=== PATIENT | female | born 1985 | race African-American/Black ===

== ENCOUNTER 2020-02-18 19:02 | Day surgery (SDC) | payer OTHER ==
[2020-02-18] MEDS ORDERED: KETOROLAC TROMETHAMINE 15 MG/ML VIAL IVPUSH ONE (20:19)
[2020-02-18] MEDS ORDERED: SODIUM CHLORIDE 1,000 ML IV STA (20:20)
[2020-02-18] MEDS ORDERED: KETOROLAC TROMETHAMINE 15 MG/ML VIAL ONE (20:37)
--- NOTE | 2020-02-18 20:45 | PDOC ---
Documentation entered by Dane Barry SCRIBE, acting as scribe for Vijay Rodriguez MD. Vijay Rodriguez MD: This documentation has been prepared by the Asha marin Xhesika, SCRIBE, under my direction and personally reviewed by me in its entirety. I confirm that the documentation accurately reflects all work, treatment, procedures, and medical decision making performed by me. History of Present Illness - General Chief Complaint: Pain Stated Complaint: R/LOWER ABD/BACK/PAIN Time Seen by Provider: 02/18/20 20:10 History Source: Patient Exam Limitations: No Limitations - History of Present Illness Initial Comments: 02/18/20 20:18 The patient is a 34 year old female with a significant PMH of DM (on metformin) and PCOS who presents to the emergency department for RLQ abdominal pain. Pt states she was at work when she endorsed sudden onset RLQ pain, sharp/pressure in nature, radiating to her back, associated with nausea. Pt states her pain was initially 8/10, took some tylenol and it now a 4/10. Pt states her LMP was 12/27/19. The patient denies chest pain, shortness of breath, headache and dizziness. Denies fever, chills, cough, vomiting, diarrhea and constipation. Denies dysuria, frequency, urgency and hematuria. Allergies: NKDA PCP:Dr. Sheppard Past History - Medical History Allergies/Adverse Reactions: Allergies Allergy/AdvReac Type Severity Reaction Status Date / Time No Known Allergies Allergy Verified 02/18/20 19:32 Home Medications: Ambulatory Orders Metformin HCl [Glucophage] 500 mg PO BID 02/20/20 COPD: No CHF: No Diabetes: Yes (NIDDM) - Reproductive History Is Patient Now?: No (maybe?) - Psycho-Social/Smoking History Smoking History: Never smoked - Substance Abuse Hx (Audit-C & DAST Scrn) How often the patient has a drink containing alcohol: Never Score: In Men: 4 or > Positive; In Women: 3 or > Positive: 0 Screen Result (Pos requires Nsg. Audit-10AR): Negative In the last yr the pt used illegal drug/Rx for NonMed reason: No Score: Yes response is considered Positive: 0 Screen Result (Positive result requires Nsg. DAST-10): Negative Review of Systems - Review of Systems Able to Perform ROS?: Yes Comments:: 02/18/20 20:22 CONSTITUTIONAL: No fever, no chills, no fatigue EYES: No visual changes ENT: No ear pain, no sore throat CARDIOVASCULAR: No chest pain, no palpitations RESPIRATORY: No cough, no SOB GI: +RLQ abdominal pain radiating to back. +nausea. no vomiting, no constipation, no diarrhea GENITOURINARY: No dysuria, no frequency, no hematuria MUSKULOSKELETAL: No backpain, no joint pain, no myalgias SKIN: No rash NEURO: No headache *Physical Exam - Vital Signs Last Vital Signs Temp Pulse Resp BP Pulse Ox 97.1 F L 75 20 135/85 100 02/18/20 19:33 02/18/20 19:33 02/18/20 19:33 02/18/20 19:33 02/18/20 19:33 - Physical Exam 02/18/20 20:26 CONSTITUTIONAL: Well-appearing; well-nourished; in no apparent distress HEAD: Normocephalic; atraumatic EYES: PERRL; EOM intact ENMT: External appears normal; normal oropharynx NECK: Supple; non-tender; no cervical lymphadenopathy CARD: Normal S1, S2; no murmurs, rubs, or gallops RESP: Normal chest excursion with respiration; breath sounds clear and equal bilaterally; no wheezes, rhonchi, or rales ABD: +RLQ tenderness to palpation. Soft, non-distended; no palpable organomegaly, no palpable hernias EXT: Normal ROM in all four extremities; non-tender to palpation; distal pulses intact SKIN: Warm, dry, no rash NEURO: No focal neurological deficiencies. ED Treatment Course - LABORATORY CBC & Chemistry Diagram: 02/20/20 06:55 02/19/20 07:05 Medical Decision Making - Medical Decision Making 02/18/20 20:43 Patient is a morbidly obese 34-year-old female with history of PCOS, diabetes on metformin who presents with atraumatic sharp right lower quadrant pain for the past several hours associated with nausea, colicky in nature, waxing and waning in severity. In the ER, patient is awake and alert, nontoxic-appearing, afebrile, with focal right lower quadrant tenderness to palpation without guarding or rebound. No CVA tenderness is appreciated. Differential diagnosis includes acute appendicitis versus ovarian torsion versus ovarian cyst rupture. Versus ectopic . Will obtain CBC/CMP/UA/UCG. Will obtain transvaginal ultrasound to rule out torsion. Will consider CT of abdomen pelvis. Will reassess. Discharge - Discharge Information Problems reviewed: Yes Clinical Impression/Diagnosis: Abdominal pain Qualifiers: Abdominal location: right lower quadrant Qualified Code(s): R10.31 - Right lower quadrant pain Acute appendicitis Qualifiers: Acute appendicitis type: other Qualified Code(s): K35.890 - Other acute appendicitis without perforation or gangrene; K35.89 - Other acute appendicitis Condition: Good Disposition: HOME - Follow up/Referral - Patient Discharge Instructions - Post Discharge Activity
[2020-02-18 21:00] LABS: BASO % 0.8 % (0-2.0); EOS % 1.1 % (0-4.5); HEMOGLOBIN 13.1 GM/dL (10.7-15.3); MCH 27.6 pg (25.7-33.7); MCHC 33.6 g/dl (32.0-36.0); MEAN CELL VOLUME 82.1 fl (80-96); MEAN PLT VOLUME 8.8 fl (7.5-11.1); NEUT % 61.1 % (42.8-82.8); PLATELET COUNT 303 K/MM3 (134-434); RBC 4.74 M/mm3 (3.60-5.2); RDW 14.1 % (11.6-15.6); WHITE BLOOD COUNT 12.4 K/mm3 (4.0-10.0)
[2020-02-18 21:46] LABS: ALBUMIN 3.8 g/dl (3.4-5.0); BILIRUBIN,TOTAL 0.3 mg/dL (0.2-1); BLOOD UREA NITROGEN 10.8 mg/dL (7-18); CALCIUM 9.3 mg/dL (8.5-10.1); CREATININE 0.9 mg/dL (0.55-1.3); TOT PROT 7.5 g/dl (6.4-8.2)
[2020-02-18 21:55] LABS: URINE APPEARANCE CLEAR; URINE BILIRUBIN NEGATIVE (NEGATIVE); URINE COLOR YELLOW; URINE GLUCOSE (UA) NEGATIVE (NEGATIVE); URINE KETONE NEGATIVE (NEGATIVE); URINE LEUK ESTERASE NEGATIVE (NEGATIVE); URINE NITRITE NEGATIVE (NEGATIVE); URINE PROTEIN NEGATIVE (NEGATIVE)
[2020-02-18 21:56] LABS: HCG,QUALITATIVE URINE Negative
[2020-02-19] MEDS ORDERED: PIPERACILLIN/TAZOB 4.5 GM 4.5 GM in DEXTROSE 5%-WATER 100 ML IVPB ONE (00:45)
[2020-02-19] MEDS ORDERED: PIPERACILLIN/TAZOB 4.5 GM 4.5 GM/100 ML BAG IVPB ONE (00:57)
[2020-02-19] MEDS ORDERED: DEXTROSE 5%-LACTATED RINGERS 1,000 ML IV SCH (01:00)
[2020-02-19] MEDS ORDERED: morphine CARPU-JECT 4 MG/1 ML DISP.SYRIN IVPUSH ONE (01:09)
[2020-02-19] MEDS ORDERED: morphine SULFATE 4 MG/ML VIAL ONE (01:10)
--- NOTE | 2020-02-19 01:11 | PDOC ---
*Physical Exam - Vital Signs Last Vital Signs Temp Pulse Resp BP Pulse Ox 97.1 F L 75 20 135/85 100 02/18/20 19:33 02/18/20 19:33 02/18/20 19:33 02/18/20 19:33 02/18/20 19:33 ED Treatment Course - LABORATORY CBC & Chemistry Diagram: 02/18/20 20:10 02/18/20 20:10 - ADDITIONAL ORDERS Additional order review: Laboratory Results 02/18/20 02/18/20 21:45 20:10 Sodium 141 Potassium 4.0 Chloride 106 Carbon Dioxide 27 Anion Gap 9 BUN 10.8 Creatinine 0.9 Est GFR (CKD-EPI)AfAm 96.01 Est GFR (CKD-EPI)NonAf 82.84 Random Glucose 154 H Calcium 9.3 Total Bilirubin 0.3 AST 22 ALT 39 Alkaline Phosphatase 71 Total Protein 7.5 Albumin 3.8 Lipase 97 Urine Color Yellow Urine Appearance Clear Urine pH 5.0 Ur Specific [place] 1.017 Urine Protein Negative Urine Glucose (UA) Negative Urine Ketones Negative Urine Blood Negative Urine Nitrite Negative Urine Bilirubin Negative Urine Urobilinogen 1.0 Ur Leukocyte Esterase Negative Urine HCG, Qual Negative 02/18/20 20:10 RBC 4.74 MCV 82.1 MCHC 33.6 RDW 14.1 MPV 8.8 Neutrophils % 61.1 Lymphocytes % 31.0 Monocytes % 6.0 Eosinophils % 1.1 Basophils % 0.8 - Medications Given in the ED: ED Medications Discontinued Medications Generic Name Dose Route Start Last Admin Trade Name Freq PRN Reason Stop Dose Admin Sodium Chloride 1,000 mls @ 1,000 mls/hr 02/18/20 20:20 02/18/20 20:53 Normal Saline - IV 02/18/20 21:19 1,000 mls/hr ASDIR STA Administration Ketorolac Tromethamine 15 mg 02/18/20 20:19 02/18/20 20:53 Toradol Injection - IVPUSH 02/18/20 20:20 15 mg ONCE ONE Administration Medical Decision Making - Medical Decision Making 02/19/20 01:10 Sign out received from Dr. Rodriguez at 12am 34 F with RLQ pain. CT shows acute appy without abscess or free air Dr. Rabago made aware of pt Will admit to hospitalist Discharge - Discharge Information Problems reviewed: Yes Clinical Impression/Diagnosis: Abdominal pain, Acute appendicitis - Admission Yes - Follow up/Referral Referrals: ON STAFF,NOT [Primary Care Provider] - - Patient Discharge Instructions - Post Discharge Activity
--- NOTE | 2020-02-19 01:47 | PN ---
Teaching Attending Note Name of Resident: Simon Rider ATTENDING PHYSICIAN STATEMENT I saw and evaluated the patient. I reviewed the resident's note and discussed the case with the resident. I agree with the resident's findings and plan as documented. SUBJECTIVE: Patient is a 34 year old woman with a PMH of NIDDM (on Metformin) and PCOS who presents to the ER for RLQ abdominal pain. Says she was at work when she developed sudden onset of RLQ pain, sharp/pressure in nature, radiating to her back, associated with nausea. Her pain was initially 8/10 - she took some Tylenol and it now a 4/10. LMP was 12/27/19 - say her periods are irregular due to the PCOS. Patient denies chest pain, shortness of breath, headache, palpitations, dizziness, fever, chills, vomiting, diarrhea, constipation, dysuria, frequency, urgency, melena, hematochezia or hematuria. Denies alcohol, tobacco or illicit drug use. No sick contacts or recent travels. Family history of HTN and CVA in mother; DM in father. OBJECTIVE: Alert Vital Signs Period Temp Pulse Resp BP Sys/Garcia Pulse Ox Last 24 Hr 97.1 F 75 20 135/85 100 HEENT: No Jaundice, eye redness or discharge, PERRLA, EOMI. Normocephalic, atraumatic. External ears are normal and hearing is grossly intact. No nasal discharge. Neck: Supple, nontender. No palpable adenopathy or thyromegaly. No JVD Chest: Good effort. Clear to auscultation and percussion. Heart: Regular. No S3, rub or murmur Abdomen: Not distended, soft, RLQ tenderness and no HSM. No rebound or guarding. Normal bowel sounds. Ext: Peripheral pulses intact. No leg edema. Skin: Warm and dry. No petechiae, rash or ecchymosis. Neuro: Alert. Oriented x3. CN 2-12 grossly intact. Sensation grossly intact in all four extremities and DTR are symmetric. Psych: Appropriate mood and affect. Good insight. Current Medications Generic Name Dose Route Start Last Admin Trade Name Freq PRN Reason Stop Dose Admin Dextrose/Lactated Ringer's 1,000 mls @ 125 mls/hr 02/19/20 01:00 02/19/20 01:08 D5-Lr - IV 125 mls/hr ASDIR ROCHELLE Administration Abnormal Lab Results 02/18/20 02/18/20 20:10 20:10 WBC 12.4 H Random Glucose 154 H Current Medications Generic Name Dose Route Start Last Admin Trade Name [place] PRN Reason Stop Dose Admin Acetaminophen 1,000 mg 02/19/20 02:19 Ofirmev Injection - IVPB 02/20/20 02:19 Q6H PRN PAIN LEVEL 1-5 Dextrose/Lactated Ringer's 1,000 mls @ 125 mls/hr 02/19/20 01:00 02/19/20 01:08 D5-Lr - IV 125 mls/hr ASDIR ROCHELLE Administration Sodium Chloride 1,000 mls @ 75 mls/hr 02/19/20 02:30 Normal Saline - IV ASDIR ROCHELLE Piperacillin Sod/Tazobactam 50 mls @ 100 mls/hr 02/19/20 08:00 Sod 3.375 gm/ Dextrose IVPB Q8H-IV ROCHELLE Protocol Piperacillin Sod/Tazobactam 50 mls @ 100 mls/hr 02/19/20 08:00 Sod 3.375 gm/ Dextrose IVPB 02/20/20 02:29 Q8H-IV ROCHELLE Protocol Insulin Aspart 1 vial 02/19/20 02:30 Novolog Vial Sliding Scale - SQ Q6H ROCHELLE Protocol Morphine Sulfate 2 mg 02/19/20 02:19 Morphine Sulfate IVPUSH Q4H PRN PAIN LEVEL 6-10 ASSESSMENT AND PLAN: 1. Appendicitis - CT abdomen/pelvis shows acute appendicitis without abscess or free air. Official report of transvaginal ultrasound is pending. Got IV Zosyn in the ER. Will continue same until he goes for surgery in the morning, get PT/INR, serum test, keep him NPO, give IV NS and use IV Morphine for pain control. ER staff consulted Surgery. EKG pending. Viral testing for COVID-19 ordered and patient placed on airborne, droplet and contact isolation. Will continue comprehensive care for all of patients comorbid conditions. 2. DM For now, we will hold the home diabetes drugs and implement sliding scale insulin regimen. Provide comprehensive diabetes care with patient teaching and counseling about the importance of adherence to prescribed diabetes regimen, euglycemia, eye care and foot care. 3. Hypertension Will restart suitable outpatient antihypertensive drugs when clinically appropriate. Subsequently, will revise regimen to ensure [id number] excellent BP control. Patient counseled on the injurious effects of uncontrolled hypertension. Nonpharmacologic measures to control hypertension like weight loss, salt restriction and exercise stressed. Importance of adherence to treatment regimen and attainment of normotension emphasized. 4. Morbid obesity Counseled on the risks associated with obesity. Will provide patient all the necessary assistance, counseling and positive reinforcement to facilitate weight loss. Consult filer repairer. 5. DVT prophylaxis - SCD. 6. Advance directives - Full code
[2020-02-19] MEDS ORDERED: ACETAMINOPHEN 1000 MG/100 ML VIAL (NON FORMULARY) IVPB PRN ×2 (02:19→15:06)
[2020-02-19] MEDS ORDERED: MORPHINE SULFATE 2 MG/ML VIAL IVPUSH PRN (02:19)
--- NOTE | 2020-02-19 02:26 | HP ---
CHIEF COMPLAINT: abdominal pain PCP: HISTORY OF PRESENT ILLNESS: Patient is a 34 year old female with history of diabetes mellitus (non insulin dependent), PCOS, presents with complaint of abdominal pain. Endorses the pain has been ongoing intermittentl for the past month, however suddenly worsened today while at work. 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 Endorses nausea, denies vomiting. Admits that the pain radiates to her back. She denies subjective fevers, chills, shortness of breath or chest pain. female. LMP 12/27/2019 (states her menstrual periods are irregular due to PCOS) ER course was notable for: (1) CT abdomen/ pelvis (2) (3) Recent Travel: denies PAST MEDICAL HISTORY: diabetes mellitus (non insulin dependent), PCOS PAST SURGICAL HISTORY: denies FAMILY HISTORY: Mother- hypertension, CVA. Father- diabetes mellitus Social History: Lives with . 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 Independent in activities of daily living. Smoking: denies smoking cigarettes Alcohol: denies drinking alcohol Drugs: denies illicit drug use Allergies No Known Allergies Allergy (Verified 02/18/20 19:32) HOME MEDICATIONS: REVIEW OF SYSTEMS CONSTITUTIONAL: Absent: fever, chills, diaphoresis, generalized weakness, malaise, loss of appetite, weight change HEENT: Absent: rhinorrhea, nasal congestion, throat pain, throat swelling, difficulty swallowing, mouth swelling, ear pain, eye pain, visual changes CARDIOVASCULAR: Absent: chest pain, syncope, palpitations, irregular heart rate, lightheadedness, peripheral edema RESPIRATORY: Absent: cough, shortness of breath, dyspnea with exertion, orthopnea, wheezing, stridor, hemoptysis GASTROINTESTINAL: Admits: abdominal pain, nausea. Absent: abdominal distension, vomiting, diarrhea, constipation, melena, hematochezia GENITOURINARY: Absent: dysuria, frequency, urgency, hesitancy, hematuria, flank pain, genital pain MUSCULOSKELETAL: Absent: myalgia, arthralgia, joint swelling, back pain, neck pain SKIN: Absent: rash, itching, pallor HEMATOLOGIC/IMMUNOLOGIC: Absent: easy bleeding, easy bruising, lymphadenopathy, frequent infections ENDOCRINE: Absent: unexplained weight gain, unexplained weight loss, heat intolerance, cold intolerance NEUROLOGIC: Absent: headache, focal weakness or paresthesias, dizziness, unsteady gait, seizure, mental status changes, bladder or bowel incontinence PSYCHIATRIC: Absent: anxiety, depression, suicidal or homicidal ideation, hallucinations. PHYSICAL EXAMINATION Vital Signs - 24 hr 02/18/20 19:33 Temperature 97.1 F L Pulse Rate 75 Respiratory 20 Rate Blood Pressure 135/85 O2 Sat by Pulse 100 Oximetry (%) GENERAL: The patient is awake, alert, and fully oriented, in no acute distress. HEAD: Normocephalic, atraumatic. EYES: PERRL, extraocular movements intact, sclera anicteric, conjunctiva clear. ENT: Oropharynx clear, without erythema or exudates. Moist mucous membranes. NECK: Trachea midline, full range of motion. Supple without lymphadenopathy. LUNGS: Breath sounds equal, clear to auscultation bilaterally. No wheezes, no crackles. No accessory muscle use. HEART: Regular rate and rhythm. S1, S2 without murmur, rub or gallop. ABDOMEN: Obese abdomen. Soft, distended. Tender to palpation worst over right lower quadrant. No rebound tenderness, no guarding. Normoactive bowel sounds x4 quadrants. EXTREMITIES: 2+ radial, dorsalis pedis pulses bilaterally. Warm, well-perfused. No lower extremity edema bilaterally. NEUROLOGICAL: Cranial nerves II through XII grossly intact. Normal speech. No gross focal deficits. PSYCH: Normal mood, normal affect upon my encounter. SKIN: Warm, dry. Laboratory Results - last 24 hr 02/18/20 02/18/20 02/18/20 20:10 20:10 21:45 WBC 12.4 H RBC 4.74 Hgb 13.1 Hct 39.0 MCV 82.1 MCH 27.6 MCHC 33.6 RDW 14.1 Plt Count 303 MPV 8.8 Absolute Neuts (auto) 7.6 Neutrophils % 61.1 Lymphocytes % 31.0 Monocytes % 6.0 Eosinophils % 1.1 Basophils % 0.8 Nucleated RBC % 0 Sodium 141 Potassium 4.0 Chloride 106 Carbon Dioxide 27 Anion Gap 9 BUN 10.8 Creatinine 0.9 Est GFR (CKD-EPI)AfAm 96.01 Est GFR (CKD-EPI)NonAf 82.84 Random Glucose 154 H Calcium 9.3 Total Bilirubin 0.3 AST 22 ALT 39 Alkaline Phosphatase 71 Total Protein 7.5 Albumin 3.8 Lipase 97 Urine Color Yellow Urine Appearance Clear Urine pH 5.0 Ur Specific [place] 1.017 Urine Protein Negative Urine Glucose (UA) Negative Urine Ketones Negative Urine Blood Negative Urine Nitrite Negative Urine Bilirubin Negative Urine Urobilinogen 1.0 Ur Leukocyte Esterase Negative Urine HCG, Qual Negative ASSESSMENT/PLAN: Patient is a 34 year old female with history of diabetes mellitus (non insulin dependent), PCOS, presents with complaint of abdominal pain. Acute appendicitis -CT abdomen, pelvis reveals appendix borderline dilatd to 7mm, mildly inflamed- consistent with acute appendicitis. Negative abscess, or free air. -Patient was treated with IV Zosn in ED. Will continue Zosyn 3.37grams IV Q8 hours. -NPO pending surgical evaluation -IV normal saline at 75mL/ hour -Pain control with Ofirmev for pain 1-5 -Morphine 2mg IV Q4 hours for breakthrough pain -Obtain type and cross, PT/INR, PTT -Follow blood cultures -General surgery consult (Dr. Rabago) History of diabetes mellitus -HgbA1c -Holding home metformin -Insulin slidng scale Q6 hours while NPO -[place]ing[place]ick blood glucose monitoring Q6 hours while NPO History of PCOS -LMP over one month ago. Serum test negative -Transvaginal US reveals nabothian cysts. Negative torsion -Patient will require OBGYn follow up upon discharge Morbid obesity -Counselled regarding healthy diet, lifestyle -core cutter and reamer consult FEN -IV normal saline at 75mL/ hour -Follow BMP -NPO pending surgical evaluation Prophylaxis -SCDs bilateral lower extremities. Holding chemical AC in anticipation of surgical evaluation Disposition -Admit to medical- surgical floor. Family Medical History Family History: As Documented Visit type - Emergency Visit Emergency Visit: Yes ED Registration Date: 02/19/20 Care time: The patient presented to the Emergency Department on the above date and was hospitalized for further evaluation of their emergent condition. - New Patient This patient is new to me today: Yes Date on this admission: 02/19/20 - Critical Care Critical Care patient: No ATTENDING PHYSICIAN STATEMENT I saw and evaluated the patient. I reviewed the resident's note and discussed the case with the resident. I agree with the resident's findings and plan as documented. SUBJECTIVE: OBJECTIVE: ASSESSMENT AND PLAN:
[2020-02-19] MEDS ORDERED: SODIUM CHLORIDE 1,000 ML IV SCH ×2 (02:30→08:58)
[2020-02-19 03:28] VITALS: BMI 46.6
[2020-02-19] MEDS: INSULIN SLIDING SCALE (NOVOLOG) 1 VIAL SQ SCH ×3 (03:30→14:23)
[2020-02-19 07:45] LABS: HEMATOCRIT 38.6 % (32.4-45.2); HEMOGLOBIN 13.1 GM/dL (10.7-15.3); MCH 28.2 pg (25.7-33.7); MEAN CELL VOLUME 83.1 fl (80-96); MEAN PLT VOLUME 8.7 fl (7.5-11.1); PLATELET COUNT 280 K/MM3 (134-434); RBC 4.64 M/mm3 (3.60-5.2); RDW 14.4 % (11.6-15.6); WHITE BLOOD COUNT 9.6 K/mm3 (4.0-10.0)
[2020-02-19 07:59] LABS: INR 1.02 (0.83-1.09)
[2020-02-19] MEDS ORDERED: PIPERACILLIN/TAZOB 3.375 GM 3.375 GM in DEXTROSE 5%-WATER - 50 ML IVPB SCH (08:00)
[2020-02-19 08:03] LABS: ALBUMIN 3.6 g/dl (3.4-5.0); CREATININE 0.8 mg/dL (0.55-1.3); MAGNESIUM 1.9 mg/dL (1.8-2.4); PHOSPHOROUS 3.5 mg/dL (2.5-4.9); POTASSIUM 3.8 mmol/L (3.5-5.1)
[2020-02-19 08:21] LABS: BILIRUBIN,TOTAL 0.5 mg/dL (0.2-1)
[2020-02-19] MEDS ORDERED: PIPERACILLIN/TAZOBACTAM 3.375 GM VIAL IVPB ONE (09:29)
[2020-02-19] MEDS ORDERED: DEXTROSE 5%-WATER - 50 ML IVPB ONE (09:29)
[2020-02-19] MEDS ORDERED: ONDANSETRON 4 MG/2 ML VIAL IVPUSH PRN ×2 (10:56→15:06)
[2020-02-19] MEDS ORDERED: LACTATED RINGERS SOLUTION 1,000 ML IV SCH ×2 (11:00→15:06)
--- NOTE | 2020-02-19 11:00 | CONSULT ---
- Consultation REQUESTING PROVIDER: CONSULT REQUEST: We have been asked to surgically evaluate this patient for appendicitis. PCP:Roni Smith MD HISTORY OF PRESENT ILLNESS:YINKA who is a 34 year old female who presented with complaints of abdominal pain. She states the pain has been ongoing intermittently ?? for the past month ??, however suddenly worsened 02/18/2020 while at work after having just finished eating lunch ([employer]) when she suddenly experienced sharp right lower quadrant abdominal pain which initially was generalized. She had nausea, denies vomiting. 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 PMHx: NIDDM/PCOS PSHx: none Allergies Allergy/AdvReac Type Severity Reaction Status Date / Time No Known Allergies Allergy Verified 02/18/20 19:32 REVIEW OF SYSTEMS: CONSTITUTIONAL: Absent: fever, chills, diaphoresis, generalized weakness, malaise, loss of appetite, weight change CARDIOVASCULAR: Absent: chest pain, syncope, palpitations, irregular heart rate, lightheadedness, peripheral edema RESPIRATORY: Absent: cough, shortness of breath, dyspnea with exertion, wheezing, stridor, hemoptysis GASTROINTESTINAL: Absent: abdominal pain, abdominal distension, nausea, vomiting, diarrhea, constipation, melena, hematochezia GENITOURINARY: Absent: dysuria, frequency, urgency, hesitancy, hematuria, flank pain, genital pain MUSCULOSKELETAL: Absent: myalgia, arthralgia, joint swelling, back pain, neck pain SKIN: Absent: rash, itching, pallor HEMATOLOGIC/IMMUNOLOGIC: Absent: easy bleeding, easy bruising, lymphadenopathy NEUROLOGIC: Absent: headache, focal weakness, paresthesias, dizziness, unsteady gait, seizure, mental status changes, bladder or bowel incontinence PSYCHIATRIC: Absent: anxiety, depression, suicidal or homicidal ideation, hallucinations. PHYSICAL EXAM: GENERAL: Awake, alert, and fully oriented, in no acute distress. HEAD: Normal with no signs of trauma. EYES: sclera anicteric, conjunctiva clear. NECK: Normal ROM, supple without lymphadenopathy, JVD, or masses. ABDOMEN: Soft, point tender over McBurneys point, not distended, normoactive bowel sounds, guarding is present and localized RLQ rebound, no masses. No organomegaly. No hernias; Rovsings; psoas and obturator signs are present. MUSCULOSKELETAL: Normal ROM at all joints. No bony deformities or tenderness. No CVA tenderness. UPPER EXTREMITIES: 2+ pulses, warm, well-perfused. No cyanosis. Cap refill <2 seconds. No peripheral edema. LOWER EXTREMITIES: 2+ pulses, warm, well-perfused. No calf tenderness. No peripheral edema. NEUROLOGICAL: Normal speech, gait not observed. PSYCH: Cooperative. Good eye contact. Appropriate mood and affect. SKIN: Warm, dry, normal turgor, no rashes or lesions noted. Vital Signs Temperature 98 F 02/19/20 09:47 Pulse Rate 78 02/19/20 09:47 Respiratory Rate 18 02/19/20 09:47 Blood Pressure 129/79 02/19/20 09:47 O2 Sat by Pulse Oximetry (%) 98 02/19/20 09:47 Lab Results WBC 9.6 K/mm3 (4.0-10.0) 02/19/20 07:05 RBC 4.64 M/mm3 (3.60-5.2) 02/19/20 07:05 Hgb 13.1 GM/dL (10.7-15.3) 02/19/20 07:05 Hct 38.6 % (32.4-45.2) 02/19/20 07:05 MCV 83.1 fl (80-96) 02/19/20 07:05 MCHC 34.0 g/dl (32.0-36.0) 02/19/20 07:05 RDW 14.4 % (11.6-15.6) 02/19/20 07:05 Plt Count 280 K/MM3 (134-434) 02/19/20 07:05 INR 1.02 (0.83-1.09) 02/19/20 07:05 Sodium 141 mmol/L (136-145) 02/19/20 07:05 Potassium 3.8 mmol/L (3.5-5.1) 02/19/20 07:05 Chloride 106 mmol/L (98-107) 02/19/20 07:05 Carbon Dioxide 27 mmol/L (21-32) 02/19/20 07:05 Anion Gap 8 MMOL/L (8-16) 02/19/20 07:05 BUN 7.0 mg/dL (7-18) 02/19/20 07:05 Creatinine 0.8 mg/dL (0.55-1.3) 02/19/20 07:05 Random Glucose 177 mg/dL (74-106) H 02/19/20 07:05 Calcium 9.0 mg/dL (8.5-10.1) 02/19/20 07:05 Blood Type O POSITIVE 02/19/20 07:05 Antibody Screen Negative 02/19/20 07:05 CT scan a/p reviewed images and report and c/w acute appendicitis IMP: acute appendicitis PLAN: Laparoscopic possible open appendectomy; r/b/t/a's d/w the patient and informed consent to be obtained. Nabeel Rabago MD FACS
[2020-02-19] MEDS ORDERED: PROPOFOL 20 ML ONE (12:39)
[2020-02-19] MEDS ORDERED: SUCCINYLCHOLINE CHLORIDE 200 MG/10 ML SYRINGE ONE (12:40)
[2020-02-19] MEDS ORDERED: ROCURONIUM BROMIDE 50 MG/5 ML SYRINGE ONE (12:50)
[2020-02-19] MEDS ORDERED: DEXAMETHASONE SOD PHOSPHATE 4 MG/1 ML VIAL ONE (12:57)
[2020-02-19] MEDS ORDERED: KETOROLAC TROMETHAMINE 30 MG/1 ML VIAL ONE (12:57)
[2020-02-19] MEDS ORDERED: DESFLURANE GAS 240 ML BOTTLE IH ONE (13:06)
[2020-02-19] MEDS ORDERED: HYDROmorphone HCl 2 MG/ML VIAL ONE (13:08)
[2020-02-19] MEDS ORDERED: BUPIVACAINE HCL/PF 0.5% (5MG/ML) 10 ML VIAL IJ ONE (14:13)
[2020-02-19] MEDS ORDERED: NEOSTIGMINE METHYLSULFATE 0.5 MG/ML - 10 ML MDV ONE (14:24)
[2020-02-19] MEDS ORDERED: GLYCOPYRROLATE 0.2 MG/1 ML VIAL ONE (14:24)
--- NOTE | 2020-02-19 14:44 | PN ---
Progress Note (short form) - Note Progress Note: SUBJECTIVE: Ongoing RLQ pain. Nausea resolved. No fever/chills. OBJECTIVE: Afebrile, Hemodynamically stable. Last Vital Signs Temp Pulse Resp BP Pulse Ox 98 F 78 18 129/79 98 02/19/20 09:47 02/19/20 09:47 02/19/20 09:47 02/19/20 09:47 02/19/20 09:47 HEENT - Atraumatic, Normocephalic. Heart - S1, S2, RRR Lungs - clear to auscultation Abdomen - Soft, RLQ tenderness. Bowel Sounds normal. Extremities - no edema, no calf tenderness. Neuro - AAO x 3. Tone/Power normal all extremities. Laboratory Results - last 24 hr 02/18/20 02/18/20 02/18/20 20:10 20:10 21:45 WBC 12.4 H RBC 4.74 Hgb 13.1 Hct 39.0 MCV 82.1 MCH 27.6 MCHC 33.6 RDW 14.1 Plt Count 303 MPV 8.8 Absolute Neuts (auto) 7.6 Neutrophils % 61.1 Lymphocytes % 31.0 Monocytes % 6.0 Eosinophils % 1.1 Basophils % 0.8 Nucleated RBC % 0 PT with INR INR PTT (Actin FS) Sodium 141 Potassium 4.0 Chloride 106 Carbon Dioxide 27 Anion Gap 9 BUN 10.8 Creatinine 0.9 Est GFR (CKD-EPI)AfAm 96.01 Est GFR (CKD-EPI)NonAf 82.84 POC Glucometer Random Glucose 154 H Hemoglobin A1c % Calcium 9.3 Phosphorus Magnesium Total Bilirubin 0.3 AST 22 ALT 39 Alkaline Phosphatase 71 Total Protein 7.5 Albumin 3.8 Lipase 97 Serum , Qual Urine Color Yellow Urine Appearance Clear Urine pH 5.0 Ur Specific [place] 1.017 Urine Protein Negative Urine Glucose (UA) Negative Urine Ketones Negative Urine Blood Negative Urine Nitrite Negative Urine Bilirubin Negative Urine Urobilinogen 1.0 Ur Leukocyte Esterase Negative Urine HCG, Qual Negative Blood Type Antibody Screen 02/19/20 02/19/20 02/19/20 04:19 07:05 07:05 WBC 9.6 RBC 4.64 Hgb 13.1 Hct 38.6 MCV 83.1 MCH 28.2 MCHC 34.0 RDW 14.4 Plt Count 280 MPV 8.7 Absolute Neuts (auto) Neutrophils % Lymphocytes % Monocytes % Eosinophils % Basophils % Nucleated RBC % PT with INR 12.00 INR 1.02 PTT (Actin FS) 34.0 Sodium Potassium Chloride Carbon Dioxide Anion Gap BUN Creatinine Est GFR (CKD-EPI)AfAm Est GFR (CKD-EPI)NonAf POC Glucometer Random Glucose Hemoglobin A1c % Calcium Phosphorus Magnesium Total Bilirubin AST ALT Alkaline Phosphatase Total Protein Albumin Lipase Serum , Qual Negative Urine Color Urine Appearance Urine pH Ur Specific [place] Urine Protein Urine Glucose (UA) Urine Ketones Urine Blood Urine Nitrite Urine Bilirubin Urine Urobilinogen Ur Leukocyte Esterase Urine HCG, Qual Blood Type Antibody Screen 02/19/20 02/19/20 02/19/20 07:05 07:05 07:05 WBC RBC Hgb Hct MCV MCH MCHC RDW Plt Count MPV Absolute Neuts (auto) Neutrophils % Lymphocytes % Monocytes % Eosinophils % Basophils % Nucleated RBC % PT with INR INR PTT (Actin FS) Sodium 141 Potassium 3.8 Chloride 106 Carbon Dioxide 27 Anion Gap 8 BUN 7.0 Creatinine 0.8 Est GFR (CKD-EPI)AfAm 110.70 Est GFR (CKD-EPI)NonAf 95.52 POC Glucometer Random Glucose 177 H Hemoglobin A1c % 8.5 H Calcium 9.0 Phosphorus 3.5 Magnesium 1.9 Total Bilirubin 0.5 AST 23 ALT 36 Alkaline Phosphatase 63 Total Protein 7.0 Albumin 3.6 Lipase Serum , Qual Urine Color Urine Appearance Urine pH Ur Specific [place] Urine Protein Urine Glucose (UA) Urine Ketones Urine Blood Urine Nitrite Urine Bilirubin Urine Urobilinogen Ur Leukocyte Esterase Urine HCG, Qual Blood Type O POSITIVE Antibody Screen Negative 02/19/20 02/19/20 09:57 10:36 WBC RBC Hgb Hct MCV MCH MCHC RDW Plt Count MPV Absolute Neuts (auto) Neutrophils % Lymphocytes % Monocytes % Eosinophils % Basophils % Nucleated RBC % PT with INR INR PTT (Actin FS) Sodium Potassium Chloride Carbon Dioxide Anion Gap BUN Creatinine Est GFR (CKD-EPI)AfAm Est GFR (CKD-EPI)NonAf POC Glucometer 166 Random Glucose Hemoglobin A1c % Calcium Phosphorus Magnesium Total Bilirubin AST ALT Alkaline Phosphatase Total Protein Albumin Lipase Serum , Qual Urine Color Urine Appearance Urine pH Ur Specific [place] Urine Protein Urine Glucose (UA) Urine Ketones Urine Blood Urine Nitrite Urine Bilirubin Urine Urobilinogen Ur Leukocyte Esterase Urine HCG, Qual Blood Type O POSITIVE Antibody Screen Current Medications Generic Name Dose Route Start Last Admin Trade Name Freq PRN Reason Stop Dose Admin Acetaminophen 1,000 mg 02/19/20 02:19 Ofirmev Injection - IVPB 02/20/20 02:19 Q6H PRN PAIN LEVEL 1-5 Fentanyl 50 mcg 02/19/20 10:56 Sublimaze Injection - IVPUSH [id number] PRN PAIN-PACU ORDER X 4 DOSES ONLY Piperacillin Sod/Tazobactam 50 mls @ 100 mls/hr 02/19/20 08:00 Sod 3.375 gm/ Dextrose IVPB Q8H-IV ROCHELLE Protocol Piperacillin Sod/Tazobactam 50 mls @ 100 mls/hr 02/19/20 08:00 02/19/20 09:39 Sod 3.375 gm/ Dextrose IVPB 02/20/20 02:29 100 mls/hr Q8H-IV ROCHELLE Administration Protocol Sodium Chloride 1,000 mls @ 125 mls/hr 02/19/20 08:58 Normal Saline - IV ASDIR ROCHELLE Lactated Ringer's 1,000 mls @ 75 mls/hr 02/19/20 11:00 Lactated Ringers Solution IV ASDIR ROCHELLE Insulin Aspart 1 vial 02/19/20 02:30 02/19/20 14:23 Novolog Vial Sliding Scale - SQ Not Given Q6H ROCHELLE Protocol Morphine Sulfate 2 mg 02/19/20 02:19 Morphine Sulfate IVPUSH Q4H PRN PAIN LEVEL 6-10 Ondansetron HCl 4 mg 02/19/20 10:56 Zofran Injection IVPUSH Q6H PRN NAUSEA AND/OR VOMITING ASSESSMENT/PLAN: 34 year old female with history of DM 2, PCOS, presents with RLQ abdominal pain, with associated nausea, no vomiting. CT A/P (prelim read): dilated appendix, inflammed, consistent with acute appendicitis. 1. Acute Appendicitis Afebrile, hemodynamicaly stable. NPO/IV fluids Awaiting Surgery this AM. Continue IV Zosyn 2. DM 2, Uncontrolled, A1C 8.5 - hold home anti-hyperglycemics. Maintain on Novolog sliding scale. 3. History of PCOS - Transvaginal US reveals nabothian cysts. Negative torsion. Gynecology follow up as out-patient. DVT Px - Heparin SQ Visit type - Emergency Visit Emergency Visit: Yes ED Registration Date: 02/19/20 Care time: The patient presented to the Emergency Department on the above date and was hospitalized for further evaluation of their emergent condition. - New Patient This patient is new to me today: Yes Date on this admission: 02/19/20 - Critical Care Critical Care patient: No - Discharge Referral Referred to [facility] No
--- NOTE | 2020-02-19 14:55 | OP ---
Operative Note - Note: Operative Date: 02/19/20 Pre-Operative Diagnosis: acute appendicitis Operation: laparoscopic appendectomy Findings: acute suppurative appendicitis Post-Operative Diagnosis: Same as Pre-op Surgeon: Nabeel Rabago Personal Chef: Lasha Emerson Anesthesiologist/NOODLE CATALYST MAKER: Susan Gay Anesthesia: General Specimens Removed: appendix Estimated Blood Loss (mls): 20
[2020-02-19] MEDS ORDERED: morphine SULFATE 4 MG/ML VIAL IVPUSH PRN (14:59)
--- NOTE | 2020-02-19 15:50 | SURG ---
Surgery Motel Maid Note Motel Maid: Lasha Emerson PA-C Date of Service: 02/19/20 Diagnosis: Acute appendicitis Procedure: laparoscopic appendectomy I was present for the entirety of the operative procedure. For further detail, please refer to operative report. Visit type - Case Type Case Type: ED Admission - Emergency Emergency Visit: Yes ED Registration Date: 02/19/20 Care time: The patient presented to the Emergency Department on the above date and was hospitalized for further evaluation of their emergent condition. - New patient This patient is new to me today: Yes Date on this admission: 02/19/20
--- NOTE | 2020-02-19 17:01 | CON.ID ---
Consult - History of Present Illness History of Present Illness: 34 y.o. female with PMH of PCOS, morbid obesity, and DM presented with c/o sudden sharp RLQ abd pain (8/10 intensity) while at work which became constant. She had nausea but no episodes of vomiting/diarrhea or any other complaints. She came to the ER soon after her symptoms began and was noted to be afebrile with stable vitals. WBC 12.4K on admission. CT revealed acute appendicitis without perforation or abscess formation. She is now s/p lap appendectomy. Pt is slightly groggy but fully responsive, without distress. She denies any pain. 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 History of Recent Travel: No Home Medications - Allergies Allergies/Adverse Reactions: Allergies Allergy/AdvReac Type Severity Reaction Status Date / Time No Known Allergies Allergy Verified 02/18/20 19:32 - Home Medications Home Medications: Ambulatory Orders oxyCODONE HCL [Roxicodone -] 5 mg PO Q4H PRN #20 tablet MDD 6 02/19/20 Review of Systems - Review of Systems Constitutional: reports: No Symptoms Eyes: reports: No Symptoms HENT: reports: No Symptoms Neck: reports: No Symptoms Cardiovascular: reports: No Symptoms Respiratory: reports: No Symptoms Gastrointestinal: reports: No Symptoms Genitourinary: reports: No Symptoms Breasts: reports: No Symptoms Reported Musculoskeletal: reports: No Symptoms Integumentary: reports: No Symptoms Neurological: reports: No Symptoms Endocrine: reports: No Symptoms Hematology/Lymphatic: reports: No Symptoms Psychiatric: reports: No Symptoms Physical Exam Vital Signs: Vital Signs Temperature 97.8 F 02/19/20 15:40 Pulse Rate 57 L 02/19/20 15:40 Respiratory Rate 18 02/19/20 15:40 Blood Pressure 137/72 02/19/20 15:40 O2 Sat by Pulse Oximetry (%) 95 02/19/20 15:40 Constitutional: Yes: No Distress, Calm Eyes: Yes: Conjunctiva Clear, EOM Intact HENT: Yes: Atraumatic, Normocephalic Neck: Yes: Supple Cardiovascular: Yes: Regular Rate and Rhythm Respiratory: Yes: CTA Bilaterally Gastrointestinal: Yes: Soft, Abdomen, Obese, Other (minimal tenderness) Renal/: Yes: WNL Extremities: Yes: WNL Integumentary: Yes: WNL Neurological: Yes: Alert, Oriented Labs: CBC, BMP 02/19/20 07:05 02/19/20 07:05 Laboratory Last Values WBC 9.6 K/mm3 (4.0-10.0) 02/19/20 07:05 RBC 4.64 M/mm3 (3.60-5.2) 02/19/20 07:05 Hgb 13.1 GM/dL (10.7-15.3) 02/19/20 07:05 Hct 38.6 % (32.4-45.2) 02/19/20 07:05 MCV 83.1 fl (80-96) 02/19/20 07:05 MCH 28.2 pg (25.7-33.7) 02/19/20 07:05 MCHC 34.0 g/dl (32.0-36.0) 02/19/20 07:05 RDW 14.4 % (11.6-15.6) 02/19/20 07:05 Plt Count 280 K/MM3 (134-434) 02/19/20 07:05 MPV 8.7 fl (7.5-11.1) 02/19/20 07:05 Absolute Neuts (auto) 7.6 K/mm3 (1.5-8.0) 02/18/20 20:10 Neutrophils % 61.1 % (42.8-82.8) 02/18/20 20:10 Lymphocytes % 31.0 % (8-40) 02/18/20 20:10 Monocytes % 6.0 % (3.8-10.2) 02/18/20 20:10 Eosinophils % 1.1 % (0-4.5) 02/18/20 20:10 Basophils % 0.8 % (0-2.0) 02/18/20 20:10 Nucleated RBC % 0 % (0-0) 02/18/20 20:10 PT with INR 12.00 SEC (9.7-13.0) 02/19/20 07:05 INR 1.02 (0.83-1.09) 02/19/20 07:05 PTT (Actin FS) 34.0 SECONDS (25.2-36.5) 02/19/20 07:05 Sodium 141 mmol/L (136-145) 02/19/20 07:05 Potassium 3.8 mmol/L (3.5-5.1) 02/19/20 07:05 Chloride 106 mmol/L (98-107) 02/19/20 07:05 Carbon Dioxide 27 mmol/L (21-32) 02/19/20 07:05 Anion Gap 8 MMOL/L (8-16) 02/19/20 07:05 BUN 7.0 mg/dL (7-18) 02/19/20 07:05 Creatinine 0.8 mg/dL (0.55-1.3) 02/19/20 07:05 Est GFR (CKD-EPI)AfAm 110.70 02/19/20 07:05 Est GFR (CKD-EPI)NonAf 95.52 02/19/20 07:05 POC Glucometer 166 UNITS (80-120) 02/19/20 09:57 Random Glucose 177 mg/dL (74-106) H 02/19/20 07:05 Hemoglobin A1c % 8.5 % (4.2-6.3) H 02/19/20 07:05 Calcium 9.0 mg/dL (8.5-10.1) 02/19/20 07:05 Phosphorus 3.5 mg/dL (2.5-4.9) 02/19/20 07:05 Magnesium 1.9 mg/dL (1.8-2.4) 02/19/20 07:05 Total Bilirubin 0.5 mg/dL (0.2-1) 02/19/20 07:05 AST 23 U/L (15-37) 02/19/20 07:05 ALT 36 U/L (13-61) 02/19/20 07:05 Alkaline Phosphatase 63 U/L (45-117) 02/19/20 07:05 Total Protein 7.0 g/dl (6.4-8.2) 02/19/20 07:05 Albumin 3.6 g/dl (3.4-5.0) 02/19/20 07:05 Lipase 97 U/L (73-393) 02/18/20 20:10 Serum , Qual Negative 02/19/20 04:19 Urine Color Yellow 02/18/20 21:45 Urine Appearance Clear 02/18/20 21:45 Urine pH 5.0 (5.0-8.0) 02/18/20 21:45 Ur Specific [place] 1.017 (1.010-1.035) 02/18/20 21:45 Urine Protein Negative (NEGATIVE) 02/18/20 21:45 Urine Glucose (UA) Negative (NEGATIVE) 02/18/20 21:45 Urine Ketones Negative (NEGATIVE) 02/18/20 21:45 Urine Blood Negative (NEGATIVE) 02/18/20 21:45 Urine Nitrite Negative (NEGATIVE) 02/18/20 21:45 Urine Bilirubin Negative (NEGATIVE) 02/18/20 21:45 Urine Urobilinogen 1.0 mg/dL (0.2-1.0) 02/18/20 21:45 Ur Leukocyte Esterase Negative (NEGATIVE) 02/18/20 21:45 Urine HCG, Qual Negative 02/18/20 21:45 Blood Type O POSITIVE 02/19/20 10:36 Antibody Screen Negative 02/19/20 07:05 Imaging - Results Cat Scan: Report Reviewed Ultrasound: Report Reviewed Problem List - Problems (1) Acute appendicitis Code(s): K35.80 - UNSPECIFIED ACUTE APPENDICITIS Assessment/Plan 34 y.o. female with DM, morbid obesity, PCOS presented with RLQ abd pain and mild leukocytosis Acute appendicitis without perforation, s/p lap appendectomy POD#0 -- pt is alert, afebrile, pain controlled -- s/p doses of Zosyn, was d/c'd earlier -- continue monitor vitals, wbc closely -- follow up pending labs -- Surgery following Will follow up Thank you
--- NOTE | 2020-02-19 18:01 | EKG ---
Test Reason : Blood Pressure : / mmHG Vent. Rate : 059 BPM Atrial Rate : 059 BPM P-R Int : 172 ms QRS Dur : 088 ms QT Int : 436 ms P-R-T Axes : 018 028 006 degrees QTc Int : 431 ms SINUS BRADYCARDIA NONSPECIFIC ST ABNORMALITY ABNORMAL ECG Confirmed by MD BETINA, JACQUELINE ([id number]) on 02/19/2020 6:01:25 PM Referred By: Confirmed By:JACQUELINE MOFFETT MD
[2020-02-19] MEDS ORDERED: INSULIN SLIDING SCALE (NOVOLOG) 1 VIAL SQ SCH (20:30)
[2020-02-19] MEDS ORDERED: HEPARIN NA (PORCINE) 5,000 UNITS/ML 1ML VIAL SQ SCH (22:00)
[2020-02-20] MEDS: ACETAMINOPHEN 1000 MG/100 ML VIAL (NON FORMULARY) IVPB PRN ×2 (01:08→06:15)
[2020-02-20] MEDS: INSULIN (NOVOLOG) ASPART 100 UNITS/ML 10ML VIAL SQ SCH ×2 (06:17→11:40)
[2020-02-20 08:26] LABS: BASO % 0.3 % (0-2.0); HEMATOCRIT 35.8 % (32.4-45.2); MCH 27.3 pg (25.7-33.7); MCHC 33.5 g/dl (32.0-36.0); MEAN CELL VOLUME 81.5 fl (80-96); MEAN PLT VOLUME 8.7 fl (7.5-11.1); MONO % 5.8 % (3.8-10.2); NEUT % 75.9 % (42.8-82.8); PLATELET COUNT 305 K/MM3 (134-434); RBC 4.39 M/mm3 (3.60-5.2); RDW 14.3 % (11.6-15.6); WHITE BLOOD COUNT 13.6 K/mm3 (4.0-10.0)
--- NOTE | 2020-02-20 09:00 | PN ---
Progress Note (short form) - Note Progress Note: SURGERY 34yo F s/p lap appy POD 1. Pt seen and examined at bedside. Pt appears to be doing well, complains of minimal pain in RLQ. Denies fever, chills, n/v, diarrhea. Pt tolerating Clears and urinating well. Last Vital Signs Temp Pulse Resp BP Pulse Ox 98.3 F 73 18 116/62 99 02/20/20 06:00 02/20/20 06:00 02/20/20 06:00 02/20/20 06:00 02/20/20 06:00 CBC, BMP 02/20/20 06:55 02/19/20 07:05 PE; Gen ;A&O X3 Resp: breathing comfortably Abd: soft, nontender, nondistended, incisions clean with no erythema or discharge. Ext: no edema Problem List - Problems (1) Acute appendicitis Assessment/Plan: Plan -pt appears to be doing well, pt cleared for discharge home from surgical standpoint -pt follow up with Dr. Rabago next week for postop check. Pt discussed with Dr. Rabago who agrees with plan Problems reviewed: Yes Code(s): K35.80 - UNSPECIFIED ACUTE APPENDICITIS Qualifiers: Appendicitis gangrene presence: without gangrene Appendicitis perforation presence: without perforation Appendicitis abscess presence: without abscess
--- NOTE | 2020-02-20 11:29 | OP ---
DATE OF OPERATION: 02/20/2020 PREOPERATIVE DIAGNOSIS: Acute appendicitis. POSTOPERATIVE DIAGNOSIS: Acute appendicitis. PROCEDURE: Laparoscopic appendectomy. SURGEON: Nabeel Rabago MD FUR MATCHER: Lasha Emerson PA-C ANESTHESIA: General. OPERATIVE FINDINGS: Acute suppurative appendicitis. The rest of the findings were unremarkable. PROCEDURE: The patient was placed on the operating room table in the supine position, and after induction of general anesthesia and placement of a Moreno catheter, the patient's abdomen was prepped with ChloraPrep and draped in sterile fashion. A timeout was taken, and pneumoperitoneum established at the umbilicus, using a Veress needle to an intraabdominal pressure of 15 mmHg. Next, a 12-mm suprapubic port just to the left of the midline was placed without incident, and then a left lower quadrant 5-mm port. The patient was placed in the head-down position and rotated to the left and laparoscopy carried out and previously noted findings were observed. The appendix was grasped and using blunt dissection and the LigaSure device mobilized from the lateral abdominal wall. The mesoappendix was serially divided using the LigaSure device as well. Once the base of the appendix was identified at the confluence of the 3 tenia on the cecum, a 60-mm Endo LIGIA purple load stapler was placed across the base of the appendix and fired. The appendix was then placed in an EndoCatch and brought up to the abdominal wall at the 12-mm port site. The suture line was inspected for hemostasis and/or leak, and there was found to be none. The appendix was then removed with the 12-mm port, and sent the pathological examination. The 12-mm port was replaced and pneumoperitoneum reestablished, and hemostasis checked for and noted to be good. At this point, the two 5-mm ports and the 12-mm port were removed, and the pneumoperitoneum evacuated. The defect at the suprapubic port site was closed with a single [id number] 0 Vicryl suture, and the port sites were injected with 0.5% Marcaine. The skin edges were reapproximated with interrupted 4-0 Biosyn followed by Steri-Strips and Band-Aid dressings. The patient was then aroused from anesthesia and prior to this the Moreno catheter removed, and the patient transferred to postanesthesia care unit in stable condition awake and alert. Estimated blood loss 20 mL. Replacements: crystalloid, Drains: none Specimen: appendix to Pathology. I, Nabeel Rabago, was physically present in the operating room from the time the patient was placed on the operating room table until she was transferred to the postanesthesia care unit in my accompaniment. MD RAMIREZ Hunter/[id number] MTDD
--- NOTE | 2020-02-20 11:53 | PN ---
Progress Note (short form) - Note Progress Note: Anesthesia Post op Pt seen and examined S:Alert and awake S: Vital Signs Temperature 98.3 F 02/20/20 06:00 Pulse Rate 73 02/20/20 06:00 Respiratory Rate 18 02/20/20 09:00 Blood Pressure 116/62 02/20/20 06:00 O2 Sat by Pulse Oximetry (%) 98 02/20/20 09:00 CBC, BMP 02/20/20 06:55 02/19/20 07:05 A/P Current Active Problems Abdominal pain (Acute) Acute appendicitis (Acute) s/p Lap Appendectomy Doing well post op Husam Ordonez MD
[2020-02-20 13:25] VITALS: BP 119/66; PULSE 79; TEMP 98
--- NOTE | 2020-02-20 14:08 | PN ---
Teaching Attending Note Name of Resident: Kiran Crowell ATTENDING PHYSICIAN STATEMENT I saw and evaluated the patient. I reviewed the resident's note and discussed the case with the resident. I agree with the resident's findings and plan as documented. SUBJECTIVE: RLQ pain resolved post-op. Nausea resolved. tolerating oral intake. No fever/chills. OBJECTIVE: Afebrile, Hemodynamically stable. Last Vital Signs Temp Pulse Resp BP Pulse Ox 98.0 F 79 18 119/66 98 02/20/20 10:00 02/20/20 10:00 02/20/20 10:00 02/20/20 10:00 02/20/20 10:00 Heart - S1, S2, RRR Lungs - clear to auscultation Abdomen - Soft, mild RLQ tenderness - no guarding/rebound. Bowel Sounds normal. Extremities - no edema, no calf tenderness. Neuro - AAO x 3. Tone/Power normal all extremities. Laboratory Results - last 24 hr 02/19/20 02/19/20 02/20/20 02:21 21:46 06:10 WBC RBC Hgb Hct MCV MCH MCHC RDW Plt Count MPV Absolute Neuts (auto) Neutrophils % Lymphocytes % Monocytes % Eosinophils % Basophils % Nucleated RBC % POC Glucometer 274 177 COVID-19 (JOHN) Not detected 02/20/20 02/20/20 06:55 11:34 WBC 13.6 H RBC 4.39 Hgb 12.0 Hct 35.8 MCV 81.5 MCH 27.3 MCHC 33.5 RDW 14.3 Plt Count 305 MPV 8.7 Absolute Neuts (auto) 10.3 H Neutrophils % 75.9 D Lymphocytes % 18.0 D Monocytes % 5.8 Eosinophils % 0.0 D Basophils % 0.3 Nucleated RBC % 0 POC Glucometer 262 COVID-19 (JOHN) Current Medications Generic Name Dose Route Start Last Admin Trade Name Freq PRN Reason Stop Dose Admin Acetaminophen 1,000 mg 02/19/20 23:00 02/20/20 06:15 Ofirmev Injection - IVPB 02/20/20 23:00 1,000 mg Q6H PRN Administration PAIN LEVEL 6-10 Lactated Ringer's 1,000 mls @ 75 mls/hr 02/19/20 15:06 02/19/20 21:58 Lactated Ringers Solution IV 75 mls/hr ASDIR ROCHELLE Administration Insulin Aspart 1 units 02/20/20 07:00 02/20/20 11:40 Novolog Vial SQ 6 unit ACHS ROCHELLE Administration Protocol Morphine Sulfate 4 mg 02/19/20 14:59 Morphine Sulfate IVPUSH Q6H PRN PAIN LEVEL 6-10 Ondansetron HCl 4 mg 02/19/20 15:06 Zofran Injection IVPUSH Q6H PRN NAUSEA AND/OR VOMITING Home Medications Medication Instructions Recorded Metformin HCl [Glucophage] 500 mg PO BID 02/20/20 ASSESSMENT/PLAN: 34 year old female with history of DM 2, PCOS, presents with RLQ abdominal pain, with associated nausea, no vomiting. CT A/P (prelim read): dilated appendix, inflammed, consistent with acute appendicitis. 1. Acute Appendicitis POD 1 s/p laparoscopic appendectomy Afebrile, hemodynamicaly stable. tolerating oral intake IV Zosyn discontinued, no need for further Abx Surgery out-patient follow up. 2. DM 2, Uncontrolled, A1C 8.5 - resumed on Metformin with advice to follow with PCP for better diabetic control and up-titration of diabetes medications. 3. History of PCOS - Transvaginal US reveals nabothian cysts. Negative torsion. Gynecology follow up as out-patient. 4. Pulmonary Nodule on CT A/P - for Pulmonary referral on discharge for follow up CT Chest. Medically stable for discharge after laparoscopic appendectomy.
--- NOTE | 2020-02-20 16:03 | DS ---
Physical Exam: SUBJECTIVE: Patient seen and examined at bedside. Patient is POD2 tolerating full diet and has no acute overnight events. OBJECTIVE: Vital Signs Period Temp Pulse Resp BP Sys/Garcia Pulse Ox Last 24 Hr 98.0 F-98.5 F 60-86 18-18 107-130/62-76 92-99 PHYSICAL EXAM GENERAL: The patient is awake, alert, and fully oriented, in no acute distress. LUNGS: Breath sounds equal, clear to auscultation bilaterally, no wheezes, no crackles, no accessory muscle use. HEART: Regular rate and rhythm, S1, S2 without murmur, rub or gallop. ABDOMEN: Mild tenderness around surgical site EXTREMITIES: 2+ pulses, warm, well-perfused, no edema. SKIN: Warm, dry, normal turgor, no rashes or lesions noted. LABS Laboratory Results - last 24 hr 02/19/20 02/19/20 02/20/20 02:21 21:46 06:10 WBC RBC Hgb Hct MCV MCH MCHC RDW Plt Count MPV Absolute Neuts (auto) Neutrophils % Lymphocytes % Monocytes % Eosinophils % Basophils % Nucleated RBC % POC Glucometer 274 177 COVID-19 (JOHN) Not detected 02/20/20 02/20/20 06:55 11:34 WBC 13.6 H RBC 4.39 Hgb 12.0 Hct 35.8 MCV 81.5 MCH 27.3 MCHC 33.5 RDW 14.3 Plt Count 305 MPV 8.7 Absolute Neuts (auto) 10.3 H Neutrophils % 75.9 D Lymphocytes % 18.0 D Monocytes % 5.8 Eosinophils % 0.0 D Basophils % 0.3 Nucleated RBC % 0 POC Glucometer 262 COVID-19 (JOHN) HOSPITAL COURSE: Date of Admission:02/19/20 Ms. Swetha Sheppard is a 34F w a h/o NIDDM and PCOS presenting with a complaint of RLQ pain for [address] scan reveals periappendiceal stranding with thickening of appenix suggestive of acute appendicitis. CT scan incidental finding shows lung nodule of the RLL with recommendations for outpat ient low dose chest CT follow up. Transvaginal us reveals several moderate sized nabothian cysts of the cervix w an otherwise normal pelvic sonogram. Patient recommended to follow EMERGENCY SPECIALIST outpatient. Uncomplicated Lap Appendectomy preformed by Dr. Rabago with follow up outpatient. Patient denies any acute events, passing flatus, and tolerating full diet. Patient is hemodynamically stable and afebrile for 24 hrs. Date of Discharge: 02/20/20 Minutes to complete discharge: 35 Discharge Summary Problems reviewed: Yes Reason For Visit: ACUTE APPENDICITIS Condition: Good - Instructions Diet, Activity, Other Instructions: YOUR VISIT: You were admitted to the hospital for abdominal pain. While you were here we evaluated you with blood work, lab work, and imaging including an abdominal CT which revealed an inflammation of your appendix and a vaginal ultrasound. This appendicitis is what caused your symptoms of lower abdominal pain. You were evaluated by our general surgeon (Dr. Nabeel Rabago) and brought to the Operative Room for an appendectomy. You were evaluated by the infectious disease doctor (Dr. Barajas) and were treated with antibiotics. You were monitored carefully for abdominal pain, vitals, and bowel movements by the surgical team, infectious disease doctor, and the internal medicine team. You managed to tolerate your diet and were able to pass gas. You have been medically cleared for discharge and will follow up with your primary care physician. During your visit, a vaginal ultrasound was performed which revealed cysts on your cervix. You must follow up with your EMERGENCY SPECIALIST to review the ultrasound findings. MEDICATION: Please continue taking METFORMIN 500mg twice a day REFERRAL: Please follow up with your surgeon to evaluate your progress within 7-10 days after discharge (Dr. Nabeel Rabago). Call the office at [phone] or [phone] for a post operative appointment. Please follow up with your EMERGENCY SPECIALIST to evaluate your ultrasound results within 1 week after discharge (Dr. Akins) Please follow up with your primary care doctor to review your hospital course and evaluate your progress within 1 week after discharge (Dr. Daniel Gonzalez ) Please follow with Pulmonary - Dr. Redding - for evaluation of a Pulmonary nodule detected on recent CT scan. ADDITIONAL INFORMATION: You are being discharged home Please return to the Emergency Department immediately if you begin to experience, nausea, vomiting, fevers or chills, increased abdominal pain, short ness of breath, chest pain, new or concerning symptoms. Post Operative Instructions Physical activity Resume your normal everyday activity as tolerated no heavy lifting or exercise until seen by your surgeon. You may walk unlimited amounts of and climb stairs. You may resume driving the car when you feel safe and comfortable behind the wheel. Wound care If you have a bandage, leave it on, and keep dry for 48 - 72 hours. After that time discard the outer bandage. If there are tapes on the skin under the outer bandage, leave them in place. They will peel off in the next 7 to 10 days. Do Not peel them off. You may shower 2 days after surgery. If there are tapes prese nt on the skin, they can get wet. Diet There are no dietary restrictions. Eat healthy, high-fiber foods. Drink 6 to 8 glasses of liquid each day. This will assist in keeping your bowels are regular. Pain management You may take Tylenol or acetaminophen or Ibuprofen (for example, Motrin, Advil etc.) Any pain prescription medication ordered should be taken as prescribed for moderate to severe pain. Call Dr. Rabago for any of the following: Severe pain not relieved by medication Fever of 101 or higher Excessive bleeding or drainage on dressing Inability to urinate Referrals: Nabeel Rabago MD [Staff Physician] - David Redding MD [Staff Physician] - 1 Week (follow up of pulmonary nodule, incidental finding on recent CT a/p) Lois Akins MD [Non Staff, Medical] - 1 Week (Follow up for transvaginal US showing nabothian cysts) ON STAFF,NOT [Primary Care Provider] - Disposition: HOME - Home Medications Comprehensive Discharge Medication List: Ambulatory Orders Metformin HCl [Glucophage] 500 mg PO BID 02/20/20 This patient is new to me today: Yes Date on this admission: 02/20/20 Emergency Visit: Yes Care time: The patient presented to the Emergency Department on the above date and was hospitalized for further evaluation of their emergent condition. Critical Care patient: No - Discharge Referral Referred to [facility] Med [facility] No ATTENDING PHYSICIAN STATEMENT I saw and evaluated the patient. I reviewed the resident's note and discussed the case with the resident. I agree with the resident's findings and plan as documented. SUBJECTIVE: OBJECTIVE: ASSESSMENT AND PLAN:
--- NOTE | 2020-02-21 17:25 | PATH ---
Surgical Pathology Report Patient Name: SIMBA [facility]NA [facility]. Rec. #: [id number] /Age/Gender: 1985 (Age: 34) / F Account: <[id number]> Location: EMERGENCY ROOM Taken: 02/19/2020 Received: 02/20/2020 Reported: 02/21/2020 Physicians: Nabeel Rabago MD Specimen(s) Received APPENDIX Clinical History Appendicitis Final Diagnosis APPENDIX, LAPAROSCOPIC APPENDECTOMY: ACUTE APPENDICITIS AND PERIAPPENDICITIS. FOCAL ACUTE SEROSITIS Electronically Signed Katiuska Enrique M.D. Gross Description Received in formalin, labeled "appendix," is a 7.5 cm. in length vermiform appendix with a stapled margin of resection and moderate attached fat. The serosa is horan-kang and smooth. Sectioning reveals a focally hemorrhagic lumen. The wall of the appendix averages 0.1 cm. in thickness. Die Reamer sections are submitted in one cassette. /02/20/2020 saudi02/20/2020
== END 2020-02-20 14:45 | disposition home or self-care (01) ==
LOC: JER 19:02 → JERBED 02-19 01:11 → UNDOADMIN 02-19 01:11 → JERBED 02-19 03:07 → J7W 02-19 03:07 → JASUSAT 02-19 07:00
PROVIDERS: ATTEND Internal Medicine
PROC: 0DTJ4ZZ Resection of Appendix, Percutaneous Endoscopic Approach (ICD-10-PCS; principal; 2020-02-19 12:00)
DX: K35.890 Other acute appendicitis without perforation or gangrene (principal); E66.01 Morbid (severe) obesity due to excess calories; E11.9 Type 2 diabetes mellitus without complications
CPT/HCPCS: 36415; 74177-TC; 76830-TC; 80053; 81003; 82962; 83036; 83690; 83735; 84100; 84703; 85025; 85027; 85610; 85730; 86850; 86900; 86901; 87040; 87086; 88304-TC; 93005; 93010; 94760; 99285-25; J0131; Q9967; U0003